=== PATIENT | female | born 1970 | race Caucasian/White ===

== ENCOUNTER 2018-03-09 05:35 | Emergency (ER) | payer SELFPAY ==
[2018-03-09 06:46] LABS: Absolute Lymphocytes (CBC) 0.9 K/uL (0.7-4.9); Absolute Monocytes 0.4 K/uL (0.1-1.3); Basophils % 0.4 % (0-1.3); Eosinophils % 1.4 % (0-4.4); Hematocrit 35.6 % (36.0-45.0); Lymphocytes % 13.5 % (15.3-44.8); MCH 31.6 pg (27.0-35.0); MCV 90.4 fL (80-100); MPV 9.4 fL (7.6-11.3); Monocytes % 6.8 % (3.3-12.3); RBC Red Blood Cell Count 3.94 M/uL (3.86-4.86)
[2018-03-09] MEDS ORDERED: CLINDAMYCIN 600MG/D5W 600 MG/50 ML BAG IV ONE (06:46)
[2018-03-09 06:58] LABS: BUN Blood Urea Nitrogen 9 mg/dL (7-18); Bicarbonate 26 mmol/L (21-32); Glucose Level 91 mg/dL (74-106); Potassium 3.5 mmol/L (3.5-5.1); Sodium Level 140 mmol/L (136-145)
[2018-03-09 07:15] LABS: Blood Morphology Comment NOT SEEN (NOT SEEN); Platelet Estimate DECR; Urine White Blood Cell Casts OK
--- NOTE | 2018-03-09 07:37 | ER ---
Nurse's Notes [facility] Name: Karla Leal Age: 48 yrs Sex: Female : 1970 Arrival Date: 03/09/2018 Time: 05:40 Bed 17 Private MD: Diagnosis: Cutaneous abscess of left lower limb;Cellulitis of left lower limb Presentation: 03/09 05:59 Presenting complaint: Patient states: "For about a week I had this abscess that popped bs1 up, picked it then took some epsom salt bath and just got worse and it smells, I took amoxicillin from brother but ran out.". Transition of care: patient was not received from another setting of care. Onset of symptoms was March 02, 2018. Risk Assessment: Do you want to hurt yourself or someone else? Patient reports no desire to harm self or others. Initial Sepsis Screen: Does the patient meet any 2 criteria? No. Patient's initial sepsis screen is negative. Does the patient have a suspected source of infection? Yes: Skin breakdown/wound. Care prior to arrival: None. 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 - Social history:: Smoking status: Patient/guardian denies using tobacco, Patient uses alcohol, occasionally. street drugs, cocaine. - Ebola Screening: : Patient negative for fever greater than or equal to 101.5 degrees Fahrenheit, and additional compatible Ebola Virus Disease symptoms Patient denies exposure to infectious person. Screenin:35 Abuse screen: Denies threats or abuse. Denies injuries from another. Nutritional bs1 screening: No deficits noted. Tuberculosis screening: No symptoms or risk factors identified. Fall Risk None identified. Assessment: 05:45 General: Appears in no apparent distress. uncomfortable, Behavior is calm, cooperative, bs1 appropriate for age. Pain: Complains of pain in left leg and medial aspect of left calf. Neuro: Level of Consciousness is awake, alert, obeys commands, Oriented to person, place, time, situation, Appropriate for age Medical Billing Assistant are equal bilaterally. Cardiovascular: Heart tones S1 S2 present Capillary refill < 3 seconds Patient's skin is warm and dry. Respiratory: Airway is patent Trachea midline Respiratory effort is even, unlabored, Respiratory pattern is regular, symmetrical, Breath sounds are clear bilaterally. GI: No signs and/or symptoms were reported involving the gastrointestinal system. : No signs and/or symptoms were reported regarding the genitourinary system. EENT: No signs and/or symptoms were reported regarding the EENT system. Derm: Skin open wound to left leg Abscess located on left leg and medial aspect of left calf is dime sized, has purulent drainage, has foul odor, is hot to touch, is red. Musculoskeletal: Circulation, motion, and sensation intact. Capillary refill < 3 seconds, Range of motion: intact in all extremities. 06:30 Reassessment: Patient appears in no apparent distress at this time. Patient and/or bs1 family updated on plan of care and expected duration. Pain level reassessed. Patient is alert, oriented x 3, equal unlabored respirations, skin warm/dry/pink. Pending lab results. Wound culture sent. 07:02 Reassessment: Report given to LAUREN Zuniga. bs1 07:10 Reassessment: Patient appears in no apparent distress at this time. Patient and/or em family updated on plan of care and expected duration. Pain level reassessed. Patient is alert, oriented x 3, equal unlabored respirations, skin warm/dry/pink. General: Appears in no apparent distress. comfortable, Behavior is calm, cooperative. Pain: Complains of pain in medial aspect of left calf. Derm: Abscess located on medial aspect of left calf is dime sized, has purulent drainage, is hot to touch, is red. Vital Signs: 05:50 BP 136 / 63; Pulse 82; Resp 18; Temp 98.4(O); Pulse Ox 98% on R/A; Weight 95.25 kg; bs1 Height 5 ft. 7 in. (170.18 cm); Pain 8/10; 06:48 BP 134 / 65; Pulse 66; Resp 18; Pulse Ox 99% on R/A; mt 07:48 BP 114 / 70; Pulse 74; Resp 18; Pulse Ox 99% on R/A; Pain 6/10; em 05:50 Body Mass Index 32.89 (95.25 kg, 170.18 cm) bs1 ED Course: 05:40 Patient arrived in ED. al2 05:54 Kiki Diaz F[facility]-C is [facility]. kb 05:54 Sohail Sanders MD is Attending Physician. kb 05:59 Tahmina Silva, ALE is Primary Nurse. bs1 06:00 Missed attempt(s): 22 gauge in right forearm. mt 06:01 Triage completed. bs1 06:30 Inserted saline lock: 22 gauge in left wrist, using aseptic technique. bs1 06:35 Patient has correct armband on for positive identification. Bed in low position. Call bs1 light in reach. Side rails up X 1. Pulse ox on. NIBP on. 06:36 Arm band placed on right wrist. bs1 07:49 No provider procedures requiring assistance completed. IV discontinued, intact, em bleeding controlled, No redness/swelling at site. Pressure dressing applied. Administered Medications: 06:45 Drug: Clindamycin 600 mg Route: IVPB; Infused Over: 30 mins; Site: left wrist; bs1 07:26 Follow up: Response: No adverse reaction; IV Status: Completed infusion; IV Intake: 50mlem 07:48 Drug: Doxycycline 100 mg Route: PO; em 07:48 Follow up: Response: Medication administered at discharge. em Intake: 07:26 IV: 50ml; Total: 50ml. em Outcome: 07:35 Discharge ordered by MD. kb 07:50 Discharged to home ambulatory. em 07:50 Condition: good 07:50 Discharge instructions given to patient, Instructed on discharge instructions, follow up and referral plans. medication usage, Demonstrated understanding of instructions, follow-up care, medications, Prescriptions given X 2. 07:51 Patient left the ED. em Addendum: 03/13/2018 09:11 Addendum: Culture Results: Positive wound culture. No further action required. Other: s s Patient reports symptoms have improved greatly. . Signatures: Kiki Diaz FNP-C FNP-Ckb Efrain Jaeger, VETERINARY MEDICINE SCIENTIST VETERINARY MEDICINE SCIENTIST em Mi Rodriguez RN RN ss Thompson, Moriah nm Tahmina Silva, ALE RN bs1 Love, Jackie al2
--- NOTE | 2018-03-09 07:37 | EDPHYS ---
Physician Documentation [facility] Name: Karla Leal Age: 48 yrs Sex: Female : 1970 Arrival Date: 03/09/2018 Time: 05:40 Bed 17 Private MD: ED Physician Sohail Sanders HPI: 03/09 06:05 This 48 yrs old Female presents to ER via Ambulatory with complaints of kb Insect Bite, Leg Pain. 06:05 The patient presents with an abscess of the medial aspect of left calf, The patient kb presents with cellulitis of the medial aspect of left calf. Description: draining, erythematous, swollen, warm. Onset: The symptoms/episode began/occurred 1 week(s) ago. Possible cause(s): unknown. Associated signs and symptoms: Pertinent positives: drainage, erythema, fever, swelling, Pertinent negatives: foreign body sensation, headache, nausea, shortness of breath, vomiting. Modifying factors: the symptoms are alleviated by nothing, the symptoms are aggravated by walking, pressure, squeezing the lesion and expressing the contents, touching. Severity of symptoms: At their worst the symptoms were moderate, in the emergency department the symptoms are unchanged. The patient has not experienced similar symptoms in the past. The patient has not recently seen a physician. Pt states an abscess started a week ago to left medial, proximal calf. Pt opened the abscess at home 3 days ago and reports taking out a core. States redness started around it after that. Symptoms have improved, but have not resolved, states it is still draining and has a bad odor. . 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 - Social history:: Smoking status: Patient/guardian denies using tobacco, Patient uses alcohol, occasionally. street drugs, cocaine. - Ebola Screening: : Patient negative for fever greater than or equal to 101.5 degrees Fahrenheit, and additional compatible Ebola Virus Disease symptoms Patient denies exposure to infectious person. ROS: 06:04 Cardiovascular: Negative for chest pain, palpitations, and edema, Respiratory: Negative kb for shortness of breath, cough, wheezing, and pleuritic chest pain, Abdomen/GI: Negative for abdominal pain, nausea, vomiting, diarrhea, and constipation, MS/Extremity: Negative for injury and deformity, Neuro: Negative for headache, weakness, numbness, tingling, and seizure. 06:04 Constitutional: Positive for fever, Negative for body aches, chills, fatigue, malaise, poor PO intake, weight loss. 06:04 Skin: Positive for abscess, cellulitis, erythema, of the medial aspect of left calf. Exam: 06:04 Constitutional: This is a well developed, well nourished patient who is awake, alert, kb and in no acute distress. Head/Face: Normocephalic, atraumatic. Chest/axilla: Normal chest wall appearance and motion. Nontender with no deformity. No lesions are appreciated. Cardiovascular: Regular rate and rhythm with a normal S1 and S2. No gallops, murmurs, or rubs. Normal PMI, no JVD. No pulse deficits. Respiratory: Lungs have equal breath sounds bilaterally, clear to auscultation and percussion. No rales, rhonchi or wheezes noted. No increased work of breathing, no retractions or nasal flaring. Abdomen/GI: Soft, non-tender, with normal bowel sounds. No distension or tympany. No guarding or rebound. No evidence of tenderness throughout. Back: No spinal tenderness. No costovertebral tenderness. Full range of motion. MS/ Extremity: Pulses equal, no cyanosis. Neurovascular intact. Full, normal range of motion. Neuro: Awake and alert, GCS 15, oriented to person, place, time, and situation. Cranial nerves II-XII grossly intact. Motor strength 5/5 in all extremities. Sensory grossly intact. Cerebellar exam normal. Normal gait. 06:04 Skin: abscess, that is moderate sized, of the medial aspect of left calf, with drainage, with induration, with surrounding cellulitis, that is moderate, pt has open wound to left medial, proximal calf area s/p abscess drainage at home. Wound is size of a dime at this time. . Vital Signs: 05:50 BP 136 / 63; Pulse 82; Resp 18; Temp 98.4(O); Pulse Ox 98% on R/A; Weight 95.25 kg; bs1 Height 5 ft. 7 in. (170.18 cm); Pain 8/10; 06:48 BP 134 / 65; Pulse 66; Resp 18; Pulse Ox 99% on R/A; mt 07:48 BP 114 / 70; Pulse 74; Resp 18; Pulse Ox 99% on R/A; Pain 6/10; em 05:50 Body Mass Index 32.89 (95.25 kg, 170.18 cm) bs1 MDM: 05:54 Patient medically screened. kb 06:03 Data reviewed: vital signs, nurses notes. Data interpreted: Pulse oximetry: on room air kb is 100 %. Interpretation: normal. 07:33 Counseling: I had a detailed discussion with the patient and/or guardian regarding: the kb historical points, exam findings, and any diagnostic results supporting the discharge/admit diagnosis, lab results, the need for outpatient follow up, a general surgeon, to return to the emergency department if symptoms worsen or persist or if there are any questions or concerns that arise at home. 07:37 ED course: ERP consulted regarding platelet count. Pt to follow up with GI outpatient kb for previous diagnosis of chronic liver failure and hepatitis C. Discussed this with pt. States "I know about it, my liver is really bad. I was having it checked when I was on insurance but I haven't been in a while." Pt educated on community resources. Verbal understanding received. . 03/09 06:02 Order name: CBC with Diff; Complete Time: 07:17 kb 03/09 06:02 Order name: Basic Metabolic Panel; Complete Time: 07:03 kb 03/09 06:02 Order name: Blood Culture Adult (2) kb 03/09 06:21 Order name: Wound Culture 03/09 06:54 Order name: CBC Smear Scan; Complete Time: 07:17 EDMS 03/09 06:02 Order name: IV Start; Complete Time: 06:45 kb Administered Medications: 06:45 Drug: Clindamycin 600 mg Route: IVPB; Infused Over: 30 mins; Site: left wrist; bs1 07:26 Follow up: Response: No adverse reaction; IV Status: Completed infusion; IV Intake: 50mlem 07:48 Drug: Doxycycline 100 mg Route: PO; em 07:48 Follow up: Response: Medication administered at discharge. em Disposition: 14:44 Co-signature as Attending Physician, Sohail Sanders MD I agree with the assessment and meghana plan of care. Disposition: 03/09/18 07:35 Discharged to Home. Impression: Cutaneous abscess of left lower limb, Cellulitis of left lower limb. - Condition is Stable. - Discharge Instructions: Skin Abscess, Klpw-mi-[id number], Cellulitis, Adult, Qmqp-[id number]. - Prescriptions for Clindamycin HCl 300 mg Oral Capsule - take 1 capsule by ORAL route every 6 hours for 10 days; 40 capsule. Doxycycline Hyclate 100 mg Oral Tablet - take 1 tablet by ORAL route every 12 hours; 20 tablet. - Medication Reconciliation Form, Thank You Letter, Antibiotic Education, Prescription Opioid Use, Work release form form. - Follow up: Emergency Department; When: As needed; Reason: Worsening of condition. Follow up: Private Physician; When: 2 - 3 days; Reason: Recheck today's complaints, Continuance of care, Re-evaluation by your physician. Signatures: Dispatcher [employer] EDKiki Chaidez, TERRITORY SALES PROFESSIONAL-C TERRITORY SALES PROFESSIONAL-Sohail Shelton MD MD cha Munoz, Edgar, ORTHOTICS ASSISTANT ORTHOTICS ASSISTANT Tahmina Singh, RN RN bs1 Corrections: (The following items were deleted from the chart) 06:21 06:04 Skin: abscess, that is moderate sized, of the medial aspect of left calf, with kb drainage, with induration, with surrounding cellulitis, that is moderate, kb 07:41 07:37 ED course: ERP consulted regarding platelet count. Pt to follow up with GI kb outpatient for previous diagnosis of chronic liver failure and hepatitis C.. kb 07:51 07:35 03/09/2018 07:35 Discharged to Home. Impression: Cutaneous abscess of left lower em limb; Cellulitis of left lower limb. Condition is Stable. Forms are Medication Reconciliation Form, Thank You Letter, Antibiotic Education, Prescription Opioid Use. Follow up: Emergency Department; When: As needed; Reason: Worsening of condition. Follow up: Private Physician; When: 2 - 3 days; Reason: Recheck today's complaints, Continuance of care, Re-evaluation by your physician. kb
[2018-03-09] MEDS ORDERED: DOXYCYCLINE 100 MG CAP PO ONE (07:41)
--- NOTE | 2018-03-21 16:40 | PN ---
Subjective: The patient lying in bed, somnolent, not in any acute distress. Objective: Vital Signs: Temperature 97, pulse 75, respirations 14, blood pressure 143/75. Lungs: Basal crackles. Heart: S1, S2. Regular. Abdomen: Soft, nontender. Bowel sounds positive. Extremities: No edema. Right hip wound noted and left buttock wound also noted. Laboratory Data: Shows WBC 10.9, hemoglobin 9.5, platelets 291. Chemistry shows sodium 136, potassi um 4.2, chloride 107, bicarb 20, BUN 36, creatinine 1.5, glucose 75. Micro data, urine cultures are growing Proteus mirabilis. ESBL currently being treated with IV antibiotic including meropenem. Assessment And Plan: Right hip unstageable wound. Left buttock stage 3 wound noted. Needs debridem ent if the patient is going to continue in acute care, especially the right hip. Urinary tract infec tion, to be treated for a total of 10 days with meropenem. Malnourished, need to improve nutrition e ither through TPN or via PEG tube or Dobbhoff. We will follow the patient closely. NF/MODL Voice ID: [id number] Report ID: [id number]
== END 2018-03-09 07:51 | disposition home or self-care (01) ==
LOC: ER 05:35
DX: L02.416 Cutaneous abscess of left lower limb (principal); L03.116 Cellulitis of left lower limb
CPT/HCPCS: 36415; 80048; 85025; 87040; 87070; 87077; 87186; 87205; 96365; 99284

== ENCOUNTER 2018-12-10 17:57 | Emergency (ER) | payer SELFPAY ==
[2018-12-10] MEDS ORDERED: FUROSEMIDE 40 MG TABLET ONE (19:32)
[2018-12-10 19:45] LABS: Absolute Lymphocytes (CBC) 0.5 K/uL (0.7-4.9); Absolute Monocytes 0.2 K/uL (0.1-1.3); Absolute Neutrophil 1.4 K/uL (1.8-8.0); Basophils % 0.4 % (0-1.3); Eosinophils % 2.1 % (0-4.4); Hematocrit 32.6 % (36.0-45.0); Lymphocytes % 22.9 % (15.3-44.8); MPV 9.5 fL (7.6-11.3); Monocytes % 9.9 % (3.3-12.3)
[2018-12-10 19:57] LABS: Bilirubin Direct 0.9 mg/dL (0-0.2); Bilirubin Total 3.6 mg/dL (0.2-1.0); Potassium 3.1 mmol/L (3.5-5.1); Protein, Total 6.1 g/dL (6.4-8.2)
--- NOTE | 2018-12-10 20:16 | EDPHYS ---
Physician Documentation [facility] [place], [place] Name: Karla Leal Age: 48 yrs Sex: Female : 1970 Arrival Date: 12/10/2018 Time: 17:59 Bed 27 Private MD: ED Physician Yusra Christy HPI: 12/10 19:20 This 48 yrs old Female presents to ER via Ambulatory with complaints of Leg ma2 Swelling, Feet Swelling. 19:20 The patient presents with swelling. Context: has had this before had cld and hep c . ma2 Onset: The symptoms/episode began/occurred gradually. Associated signs and symptoms: Pertinent negatives nausea, swelling, warmth. Severity of symptoms: At their worst the symptoms were mild. 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 - Social history:: Smoking status: Patient/guardian denies using tobacco, Patient/guardian denies using alcohol, street drugs, The patient lives with family. - Ebola Screening: : Patient denies travel to an Ebola-affected area in the 21 days before illness onset. - Family history:: not pertinent. ROS: 19:20 Constitutional: Negative for fever, chills, and weight loss, Cardiovascular: Negative ma2 for chest pain, palpitations, and edema, Respiratory: Negative for shortness of breath, cough, wheezing, and pleuritic chest pain, Abdomen/GI: Negative for abdominal pain, nausea, diarrhea, and constipation. 19:20 Neuro: Negative for headache, weakness, numbness, tingling, and seizure, Psych: Negative for depression, anxiety, suicide ideation, homicidal ideation, and hallucinations. 19:20 MS/extremity: Positive for swelling. Exam: 19:20 Constitutional: This is a well developed, well nourished patient who is awake, alert, ma2 and in no acute distress. Chest/axilla: Normal chest wall appearance and motion. Nontender with no deformity. No lesions are appreciated. Cardiovascular: Regular rate and rhythm with a normal S1 and S2. No gallops, murmurs, or rubs. Normal PMI, no JVD. No pulse deficits. Respiratory: Lungs have equal breath sounds bilaterally, clear to auscultation and percussion. No rales, rhonchi or wheezes noted. No increased work of breathing, no retractions or nasal flaring. Abdomen/GI: Soft, non-tender, with normal bowel sounds. No distension or tympany. No guarding or rebound. No evidence of tenderness throughout. Neuro: Awake and alert, GCS 15, oriented to person, place, time, and situation. Cranial nerves II-XII grossly intact. Motor strength 5/5 in all extremities. Sensory grossly intact. Cerebellar exam normal. Normal gait. 19:20 Musculoskeletal/extremity: Extremities: bilateral LE edema 2+ pitting, pulses and sensation intact cap refill brisk, ROM: intact in all extremities, Circulation is intact in all extremities. Sensation intact. Compartment Syndrome exam of affected extremity: is normal. Vital Signs: 18:15 BP 125 / 75; Pulse 85; Resp 18; Temp 98.0; Pulse Ox 100% on R/A; Weight 77.11 kg (R); aj1 Height 5 ft. 7 in. (170.18 cm) (R); Pain 8/10; 19:00 BP 118 / 70; Pulse 76; Resp 17 S; Pulse Ox 100% on R/A; ca1 19:30 BP 113 / 65; Pulse 76; Resp 17 S; Pulse Ox 100% on R/A; ca1 20:40 BP 110 / 67; Pulse 75; Resp 17; Temp 98; Pulse Ox 98% ; rv 18:15 Body Mass Index 26.63 (77.11 kg, 170.18 cm) aj1 MDM: 19:05 Patient medically screened. ma2 19:20 Differential diagnosis: LE edema from CLD vs ARF, edema is equal bilat ie dvt unlikely. ma2 Data reviewed: vital signs, nurses notes. Counseling: I had a detailed discussion with the patient and/or guardian regarding: the historical points, exam findings, and any diagnostic results supporting the discharge/admit diagnosis, the presence of at least one elevated blood pressure reading (>120/80) during this emergency department visit, the need for outpatient follow up. Response to treatment: the patient's symptoms have markedly improved after treatment. 20:15 ED course: patient has low platelet however this is chronic per patient . [facility] [place] 12/10 19:14 Order name: Basic Metabolic Panel; Complete Time: 19:58 [facility] 12/10 19:14 Order name: CBC with Diff [facility] 12/10 19:14 Order name: Creatinine for Radiology; Complete Time: 19:57 [facility] [place] 12/10 19:14 Order name: Hepatic Function; Complete Time: 19:58 [facility] [place] 12/10 19:14 Order name: Lipase; Complete Time: 19:58 [facility] 12/10 19:51 Order name: CBC Smear Scan [facility] 12/10 19:14 Order name: IV Saline Lock; Complete Time: 19:37 [facility] 12/10 19:14 Order name: Labs collected and sent; Complete Time: 19:37 [facility] 12/10 20:19 Order name: Urine Dipstick--Ancillary (enter results) [facility] 12/10 20:19 Order name: Urine --Ancillary (enter results) [facility] Administered Medications: 19:18 Drug: LaSIX 40 mg Route: PO; ca1 20:41 Follow up: Response: No adverse reaction rv Disposition: 12/10/18 20:16 Discharged to Home. Impression: Edema, unspecified. - Condition is Stable. - Discharge Instructions: Edema. - Prescriptions for Lasix 20 mg Oral Tablet - take 1 tablet by ORAL route once daily; 20 tablet. - Medication Reconciliation Form, Thank You Letter, Antibiotic Education, Prescription Opioid Use form. - Follow up: Private Physician; When: Tomorrow; Reason: Continuance of care. Signatures: Dispatcher [employer] [facility] Carolyn Franklin RN RN aj1 Yusra Christy MD MD ma2 Tyrone Cooper RN RN rv Acob, Esperanza RN RN ca1 Corrections: (The following items were deleted from the chart) 20:42 20:16 12/10/2018 20:16 Discharged to Home. Impression: Edema, unspecified. Condition is rv Stable. Prescriptions for Lasix 20 mg Oral Tablet - take 1 tablet by ORAL route once daily; 20 tablet. and Forms are Medication Reconciliation Form, Thank You Letter, Antibiotic Education, Prescription Opioid Use. Follow up: Private Physician; When: Tomorrow; Reason: Continuance of care. ma2
--- NOTE | 2018-12-10 20:16 | ER ---
Nurse's Notes [facility] Name: Karla Leal Age: 48 yrs Sex: Female : 1970 Arrival Date: 12/10/2018 Time: 17:59 Bed 27 Private MD: Diagnosis: Edema, unspecified Presentation: 12/10 18:13 Presenting complaint: Patient states: "My feet and legs have been swelling for the past aj1 few days" Patient reports that she gets swelling sometimes because she has liver failure. Patient also reports nausea, states that she does not currently have a liver specialist. Jaundice noted to sclera of both eyes. Transition of care: patient was not received from another setting of care. Onset of symptoms was December 06, 2018. Risk Assessment: Do you want to hurt yourself or someone else? Patient reports no desire to harm self or others. Initial Sepsis Screen: Does the patient meet any 2 criteria? No. Patient's initial sepsis screen is negative. Does the patient have a suspected source of infection? No. Patient's initial sepsis screen is negative. Care prior to arrival: None. 18:13 Method Of Arrival: Ambulatory aj1 18:13 Acuity: CLAUDIA 3 aj1 Triage Assessment: 18:15 General: Appears in no apparent distress. uncomfortable, Behavior is calm, cooperative, aj1 appropriate for age. Pain: Complains of pain in abdomen, right foot and left foot. Neuro: Level of Consciousness is awake, alert, obeys commands, Oriented to person, place, time, situation. Cardiovascular: Patient's skin is warm and dry. Respiratory: Airway is patent Respiratory effort is even, unlabored, Respiratory pattern is regular, symmetrical. 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 - Social history:: Smoking status: Patient/guardian denies using tobacco, Patient/guardian denies using alcohol, street drugs, The patient lives with family. - Ebola Screening: : Patient denies travel to an Ebola-affected area in the 21 days before illness onset. - Family history:: not pertinent. Screenin:35 Abuse screen: Denies threats or abuse. Denies injuries from another. Nutritional ca1 screening: No deficits noted. Tuberculosis screening: No symptoms or risk factors identified. Fall Risk None identified. Assessment: 18:35 General: Appears in no apparent distress. comfortable, Behavior is calm, cooperative, ca1 appropriate for age. Pain: Denies pain. Neuro: Level of Consciousness is awake, alert, obeys commands, Oriented to person, place, time, situation. Cardiovascular: Heart tones S1 S2 present Capillary refill < 3 seconds Patient's skin is warm and dry. Respiratory: Airway is patent Respiratory effort is even, unlabored, Respiratory pattern is regular, symmetrical, Breath sounds are clear bilaterally. GI: Abdomen is flat, non-distended, Bowel sounds present X 4 quads. Abd is soft and non tender X 4 quads. : Urine is clear. EENT: No deficits noted. No signs and/or symptoms were reported regarding the EENT system. Derm: Skin is intact, Skin is normal, Bruising that is dark purple, on all over. Musculoskeletal: Circulation, motion, and sensation intact. Capillary refill < 3 seconds, Range of motion: intact in all extremities. 19:30 Reassessment: Patient appears in no apparent distress at this time. Patient and/or ca1 family updated on plan of care and expected duration. Pain level reassessed. Patient is alert, oriented x 3, equal unlabored respirations, skin warm/dry/pink. 19:50 Reassessment: CRITICAL LAB: PLATELET 30. Notified Dr. Christy. ca1 Vital Signs: 18:15 BP 125 / 75; Pulse 85; Resp 18; Temp 98.0; Pulse Ox 100% on R/A; Weight 77.11 kg (R); aj1 Height 5 ft. 7 in. (170.18 cm) (R); Pain 8/10; 19:00 BP 118 / 70; Pulse 76; Resp 17 S; Pulse Ox 100% on R/A; ca1 19:30 BP 113 / 65; Pulse 76; Resp 17 S; Pulse Ox 100% on R/A; ca1 20:40 BP 110 / 67; Pulse 75; Resp 17; Temp 98; Pulse Ox 98% ; rv 18:15 Body Mass Index 26.63 (77.11 kg, 170.18 cm) aj1 ED Course: 17:59 Patient arrived in ED. as 18:13 Carolyn Franklin, RN is Primary Nurse. aj1 18:15 Triage completed. aj1 18:15 Arm band placed on Patient placed in waiting room, Patient notified of wait time. aj1 18:35 Patient has correct armband on for positive identification. Placed in gown. Bed in low ca1 position. Call light in reach. Side rails up X 1. Pulse ox on. NIBP on. Warm blanket given. 18:35 No provider procedures requiring assistance completed. ca1 18:57 Esperanza Ayers, RN is Primary Nurse. ca1 19:05 Yusra Christy MD is Attending Physician. ma2 19:17 Inserted saline lock: 22 gauge in left hand, using aseptic technique. Blood collected. ca1 20:42 IV discontinued, intact, bleeding controlled, No redness/swelling at site. Pressure rv dressing applied. Administered Medications: 19:18 Drug: LaSIX 40 mg Route: PO; ca1 20:41 Follow up: Response: No adverse reaction rv Outcome: 20:16 Discharge ordered by . ma2 20:42 Discharged to home ambulatory. rv 20:42 Condition: good 20:42 Condition: good 20:42 Discharge instructions given to patient, Instructed on discharge instructions, follow up and referral plans. medication usage, Demonstrated understanding of instructions, follow-up care, medications, Prescriptions given X 1. 20:42 Patient left the ED. rv Signatures: Carolyn Franklin, RN RN aj1 Margie Crowell as Yusra Christy MD MD ma2 Tyrone Cooper RN RN rv Esperanza Ayers RN RN ca1 Corrections: (The following items were deleted from the chart) 19:39 18:00 Inserted saline lock: 22 gauge in left hand, using aseptic technique. Blood ca1 collected. ca1
[2018-12-10 20:32] LABS: Urine Blood NEGATIVE (NEG); Urine Glucose NEGATIVE (NEG); Urine Protein 1+ (NEG); Urine Specific Gravity 1.025 (1.005-1.030)
[2018-12-10 21:01] LABS: Blood Morphology Comment NOT SEEN (NOT SEEN); Platelet Estimate DECR; Urine White Blood Cell Casts OK
== END 2018-12-10 20:42 | disposition home or self-care (01) ==
LOC: ER 17:57
DX: R60.9 Edema, unspecified (principal)
CPT/HCPCS: 36415; 80048; 80076; 81003; 81025; 83690; 85025; 99284

== ENCOUNTER 2018-12-21 10:08 | Emergency (ER) | payer SELFPAY ==
--- NOTE | 2018-12-21 11:32 | ER ---
Nurse's Notes [facility] Name: Karla Leal Age: 48 yrs Sex: Female : 1970 Arrival Date: 12/21/2018 Time: 10:11 Bed Waiting Private MD: Graham, None Diagnosis: Presentation: 12/21 10:21 Presenting complaint: Patient states: BLE swelling x3 weeks, nausea, weight loss 40 sv pounds over the last 3 months. Was seen here last week for the same thing and was prescribed Lasix. Transition of care: patient was not received from another setting of care. Onset of symptoms was November 2018. Care prior to arrival: None. 10:21 Method Of Arrival: Ambulatory sv 10:21 Acuity: CLAUDIA 3 sv Triage Assessment: 10:21 General: Appears in no apparent distress. uncomfortable, Behavior is calm, cooperative, sv appropriate for age. Pain: Denies pain. Neuro: Level of Consciousness is awake, alert, obeys commands, Oriented to person, place, time, situation, Moves all extremities. Full function Gait is steady. Respiratory: Respiratory effort is even, unlabored, Respiratory pattern is regular, symmetrical. GI: Reports nausea. Musculoskeletal: Swelling present in right leg and left leg. Historical: - Allergies: 10:23 No Known Drug Allergies; sv - PMHx: 10:23 Heart Murmur; HEP C; Hernia; liver failure; sv - Immunization history:: Adult Immunizations up to date. - Social history:: Smoking status: Patient/guardian denies using tobacco, Patient/guardian denies using alcohol. - Ebola Screening: : No symptoms or risks identified at this time. Vital Signs: 10:23 BP 132 / 79; Pulse 83; Resp 18; Temp 97.4; Pulse Ox 98% ; Weight 77.11 kg; Height 5 ft. sv 7 in. (170.18 cm); Pain 0/10; 10:23 Body Mass Index 26.63 (77.11 kg, 170.18 cm) sv ED Course: 10:11 Patient arrived in ED. mr 10:11 None, None is Private Physician. mr 10:22 Triage completed. sv 10:24 Arm band placed on. sv Administered Medications: No medications were administered Outcome: 11:32 Patient left the ED. sv Signatures: Rhonda Gomez RN Karla uQinteros mr Corrections: (The following items were deleted from the chart) 10:24 10:23 Resp 18bpm; Pulse Ox 98%; Temp 97.4F; 77.11 kg; Height 5 ft. 7 in.; BMI: 26.6; sv Pain 0/10; sv 10:54 10:21 Presenting complaint: Patient states: BLE swelling x3 weeks, nausea, weight loss sv 40 pounds over the last 3 months. sv
== END 2018-12-21 11:32 | disposition left against medical advice (07) ==
LOC: ER 10:08
DX: Z53.21 Procedure and treatment not carried out due to patient leaving prior to being seen by health care provider (principal)
CPT/HCPCS: 99281

== ENCOUNTER 2022-03-18 05:39 | Emergency (ER) | payer SELFPAY ==
--- OUTSIDE RECORDS SUMMARY | 2022-03-18 05:42 | XMS REPORT | Continuity of Care Document ---
:1970 Author Organization [facility] t Address [address] [place] [address] Care Team Providers Name Role Phone Kaela Penn Primary Care Physician Jaime DANIELLE, Dylan Pierson Attending Clinician Moises Duval RN, Ethel Attending Clinician Unavailable Kaela Penn Attending Clinician Payers Payer Name Policy Type Policy Number Effective Date Expiration Date S ource Problems Condition Condition Condition Status Onset Resolution Last Treating Co mments Source Name Details Category Date Date Treatment Clinician Date Hepatic Hepatic Disease Active 2018-07 Overview: Univ ers cirrhosis, cirrhosis, 08-11 Formattin ity of unspecifie unspecifie 00:00: g of this [place] d hepatic d hepatic 00 note Medi angelita cirrhosis cirrhosis might be Br anch type, type, different unspecifie unspecifie from the d whether d whether original. ascites ascites Added present present automatic ally from request for surgery [id number] Constipati Constipati Disease Active U nivers on on 03-22 ity of 00:00: [place] 00 Medical Branch Major Major Disease Active Overview: Univer s puerperal puerperal - Formattin i ty of infection infection 00:00: [place] of [place] note Medical might be Branch different from the original. 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 Social History Social Habit Start Date Stop Date Quantity Comments Source History SDAK University o f Alcohol Frequency [facility] edical Branch History SDAK University o f Alcohol Std Drinks [facility] History [facility] hospital o f Alcohol Binge [facility] al Branch Exposure to 2022-03-07 2022-03-17 Not sure [facility] SARS-CoV-2 (event) 00:00:00 15:17:00 [facility] Alcohol intake 2022-03-17 2022-03-17 Ex-drinker University 00:00:00 00:00:00 (finding) [facility] Cigarettes smoked 2022-03-17 2022-03-17 Univers ity of current (pack per 00:00:00 00:00:00 [facility] ) - Reported Branch Cigarette 2022-03-17 2022-03-17 University of pack-years 00:00:00 00:00:00 [facility] Tobacco use and 2022-03-17 2022-03-17 Smokeless Universit y of exposure 00:00:00 00:00:00 tobacco non-user [facility] Alcohol Comment 2019-05-23 2019-05-23 Socially Universit y of 00:00:00 00:00:00 [facility] History of tobacco 2012-07-31 Cigarette Smoker University of use 00:00:00 [facility] Sex Ass[birth year] At [birth year] Universit y of 00:00:00 00:00:00 [facility] Smoking Status Start Date Stop Date Source Ex-smoker 2022-03-17 00:00:00 2022-03-17 00:00:00 Universi ty of [facility] Medications Ordered Filled Start Stop Current Ordering Indication Dosage Frequency Signature Comments Components Source Medication Medication Date Date Medication? Clinician (SIG) Name Name ledipasvir/ Yes Take by Uni vers sofosbuvir 8-25 mouth. ity of (HARVONI 15:25: [place] ORAL) 43 Medical Branch ledipasvir/ 0 Yes Take by Uni vers sofosbuvir 8-25 mouth. ity of (HARVONI 15:25: [place] ORAL) 43 Medical Branch ledipasvir/ 0 Yes Take by Uni vers sofosbuvir 8-25 mouth. ity of (HARVONI 15:25: [place] ORAL) 43 Medical Branch estradioL 0 Yes [id number] 2g Insert 2 g Univers 0.01 % (0.1 8-25 into ity of mg/gram) 00:00: vagina [place] vaginal 00 weekly. Medical cream Start Branch every 2 weeks for 1 month, then weekly thereafter PARoxetine 2021-0 Yes [id number] 10mg Take 1 Univers (PAXIL) 10 8-25 tablet by [place] of mg tablet [place] bed[place]. [place] mupirocin 2 2021- Yes [id number] Apply to Univers % ointment 8-25 [id number] area(s) 3 i ty of 00:00: (three) [place] 00 times Medical daily. Branch estradioL Yes [id number] 2g Insert 2 g Univers 0.01 % (0.1 8-25 into ity of mg/gram) 00:00: vagina [place] vaginal 00 weekly. Medical cream Start Branch every 2 weeks for 1 month, then weekly thereafter PARoxetine 2021- Yes [id number] 10mg Take 1 Univers (PAXIL) 10 8-25 tablet by [place]y of mg tablet [place] bed[place]. [place] mupirocin 2 2021- Yes [id number] Apply to Univers % ointment 8-25 [id number] area(s) 3 i ty of 00:00: (three) [place] 00 times Medical daily. Branch estradioL 2021-0 Yes [id number] 2g Insert 2 g Univers 0.01 % (0.1 8-25 into ity of mg/gram) 00:00: vagina [place] vaginal 00 weekly. Medical cream Start Branch every 2 weeks for 1 month, then weekly thereafter PARoxetine 2021-0 Yes [id number] 10mg Take 1 Univers (PAXIL) 10 8-25 tablet by ity of mg tablet [place] bed[place]. [place] mupirocin 2 2021-0 Yes [id number] Apply to Univers % ointment 8-25 [id number] area(s) 3 i ty of 00:00: (three) [place] 00 times Medical daily. Branch omeprazole Yes [id number] 20mg Take 1 Univers 20 mg 4-18 capsule by ity of capsule 00:00: mouth [place] 00 daily. Medical Branch omeprazole Yes [id number] 20mg Take 1 Univers 20 mg 4-18 capsule by ity of capsule 00:00: mouth [place] 00 daily. Medical Branch omeprazole 0 Yes [id number] 20mg Take 1 Univers 20 mg 4-18 capsule by ity of capsule 00:00: mouth [place] 00 daily. Medical Branch omeprazole 0 Yes [id number] 20mg Take 1 Univers 20 mg 4-18 capsule by ity of capsule 00:00: mouth [place] 00 daily. Medical Branch spironolact 2020-07 Yes [id number] 100mg Take 1 Univers one 100 mg 2-02 tablet by ity of tablet 00:00: mouth [place] 00 daily. Medical Branch furosemide 2020-07 Yes [id number] 40mg Take 1 Univers 40 mg 2-02 tablet by ity of tablet 00:00: mouth [place] 00 daily. Medical Branch spironolact 2020-07 Yes [id number] 100mg Take 1 Univers one 100 mg 2-02 tablet by ity of tablet 00:00: mouth [place] 00 daily. Medical Branch furosemide 2020-07 Yes [id number] 40mg Take 1 Univers 40 mg 2-02 tablet by ity of tablet 00:00: mouth [place] 00 daily. Medical Branch spironolact 2020-07 Yes [id number] 100mg Take 1 Univers one 100 mg 2-02 tablet by ity of tablet 00:00: mouth [place] 00 daily. Medical Branch furosemide 2020-07 Yes [id number] 40mg Take 1 Univers 40 mg 2-02 tablet by ity of tablet 00:00: mouth [place] 00 daily. Medical Branch spironolact 2020-07 Yes [id number] 100mg Take 1 Univers one 100 mg 2-02 tablet by ity of tablet 00:00: mouth [place] 00 daily. Medical Branch furosemide 2020-07 Yes [id number] 40mg Take 1 Univers 40 mg 2-02 tablet by ity of tablet 00:00: mouth [place] 00 daily. Medical Branch mupirocin 2 2018-07 Yes [id number] Apply to Univers % ointment 0-31 area(s) 3 ity of 00:00: (three) [place] 00 times Medical daily. Branch Immunizations Ordered Filled Immunization Date Status Comments [facility] e Immunization Name Name Influenza Virus 2021-06-24 Completed Universit y of Vaccine Quad IM, 00:00:00 [place] Ca dical Preserv and ABX Branch Free 6 MO-64 YRS Influenza Virus 2021-06-24 Completed Universit y of Vaccine Quad IM, 00:00:00 [place] Me dical Preserv and ABX Branch Free 6 MO-64 YRS Influenza Virus 2021-06-24 Completed Universit y of Vaccine Quad IM, 00:00:00 [facility] dical Preserv and ABX Branch Free 6 MO-64 YRS Influenza Virus 2021-06-24 Completed Universit y of Vaccine Quad IM, 00:00:00 [facility] dical Preserv and ABX Branch Free 6 MO-64 YRS Influenza Virus 2019-05-23 Completed Universit y of Vaccine Quad .5 mL 00:00:00 [place] Medical IM 6+ MO Branch Influenza Virus 2019-05-23 Completed Universit y of Vaccine [place] .5 mL 00:00:00 [place] Medical IM 6+ MO Branch Influenza Virus 2019-05-23 Completed Universit y of Vaccine [place] .5 mL 00:00:00 [place] Medical IM 6+ MO Branch Influenza Virus 2019-05-23 Completed Universit y of Vaccine [place] .5 mL 00:00:00 [facility] IM 6+ MO Branch Pneumococcal 2007-07-24 Completed University o f Polysaccharide, 00:00:00 [facility] ical PPSV23 (PNEUMOVAX) Branch Pneumococcal 2007-07-24 Completed University o f Polysaccharide, 00:00:00 [place] [facility] ical PPSV23 (PNEUMOVAX) Branch Pneumococcal 2007-07-24 Completed University o f Polysaccharide, 00:00:00 [place] Med ical PPSV23 (PNEUMOVAX) Branch Pneumococcal 2007-07-24 Completed University o f Polysaccharide, 00:00:00 [place] Med ical PPSV23 (PNEUMOVAX) Branch Procedures This patient has no known procedures. Encounters Start End Encounter Admission Attending Care Care Encounter Source Date/Time Date/Time Type Type Clinicians Facility Department ID 2022-03-18 2022-03-18 Telephone Jaime [facility] [id number] Univers 00:00:00 00:00:00 Peter A HEALTH [id number] it y of [place] [id number] [id number] [facility] PRIMARY & 365 Branch SPECIALTY CARE 2022-03-18 2022-03-18 Nurse Moises MOELLER [id number] Univers 00:00:00 00:00:00 Triage FADI Duval [id number] ity of [facility] [id number] Nikolas as [phone] [place] [address] Branch 2022-03-18 2022-03-18 Telephone Moises MOELLER [id number] Univers 00:00:00 00:00:00 FADI Duval [id number] ity of [facility] [id number] Nikolas as [phone] [address] 2021-11-08 2021-11-08 SWEETIE Trivedi [id number] Univers 00:00:00 00:00:00 Kaela HEALTH [id number] it y of [place] [id number] Nikolas as JANE?BLEA [phone] Ca sebas VALENCIA [facility] Branch MEDICAL OFFICE BUILDING Results This patient has no known results.
[2022-03-18] MEDS ORDERED: NA CHLORIDE 0.9% 500 ML ONE (06:05)
[2022-03-18 06:29] LABS: Absolute Lymphocytes (CBC) 0.5 K/uL (0.7-4.9); Hematocrit 28.1 % (36.0-45.0); Lymphocytes % 17.1 % (15.3-44.8); MCV 83.5 fL (80-100); MPV 8.2 fL (7.6-11.3); RBC Red Blood Cell Count 3.36 M/uL (3.86-4.86)
[2022-03-18 06:33] LABS: Urine Blood Negative (Negative); Urine Glucose Trace (Negative); Urine Protein 1+ (Negative); Urine Specific Gravity >=1.030 (1.005-1.030)
[2022-03-18 06:49] LABS: Albumin 2.7 g/dL (3.4-5.0); Bilirubin Total 2.4 mg/dL (0.2-1.0); Protein, Total 6.3 g/dL (6.4-8.2)
[2022-03-18 06:50] LABS: Potassium 3.7 mmol/L (3.5-5.1)
[2022-03-18] MEDS ORDERED: CEFTRIAXONE 1000 MG/VIAL ONE (06:52)
[2022-03-18] MEDS ORDERED: CIPROFLOXACIN HCL 500 MG TAB ONE (06:52)
--- NOTE | 2022-03-18 07:04 | EDPHYS ---
Physician Documentation [facility] Name: Karla Leal Age: 52 yrs Sex: Female : 1970 Arrival Date: 03/18/2022 Time: 05:40 Bed 5 Private MD: RIO Physician Sohail Sanders HPI: 03/18 05:48 This 52 yrs old Female presents to ER via Unassigned with complaints of meghana Abnormal Lab Results. 05:48 low calcium, high potassium. Onset: The symptoms/episode began/occurred 1 day(s) ago. meghana Severity of symptoms: At their worst the symptoms were mild in the emergency department the symptoms are unchanged. The patient has not experienced similar symptoms in the past. 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 - Family history:: not pertinent. - Social history:: Smoking status: Patient denies any tobacco usage or history of. ROS: 05:49 Constitutional: Negative for fever, chills, and weight loss, Eyes: Negative for injury, meghana pain, redness, and discharge, ENT: Negative for injury, pain, and discharge, Neck: Negative for injury, pain, and swelling, Cardiovascular: Negative for chest pain, palpitations, and edema, Respiratory: Negative for shortness of breath, cough, wheezing, and pleuritic chest pain, Abdomen/GI: Negative for abdominal pain, nausea, vomiting, diarrhea, and constipation, Back: Negative for injury and pain, : Negative for injury, bleeding, discharge, and swelling, MS/Extremity: Negative for injury and deformity, Skin: Negative for injury, rash, and discoloration, Neuro: Negative for headache, weakness, numbness, tingling, and seizure, Psych: Negative for depression, anxiety, suicide ideation, homicidal ideation, and hallucinations, Allergy/Immunology: Negative for hives, rash, and allergies, Endocrine: Negative for neck swelling, polydipsia, polyuria, polyphagia, and marked weight changes, Hematologic/Lymphatic: Negative for swollen nodes, abnormal bleeding, and unusual bruising. Exam: 05:49 Constitutional: This is a well developed, well nourished patient who is awake, alert, meghana and in no acute distress. Head/Face: Normocephalic, atraumatic. Eyes: Pupils equal round and reactive to light, extra-ocular motions intact. Lids and lashes normal. Conjunctiva and sclera are non-icteric and not injected. Cornea within normal limits. Periorbital areas with no swelling, redness, or edema. ENT: Nares patent. No nasal discharge, no septal abnormalities noted. Tympanic membranes are normal and external auditory canals are clear. Oropharynx with no redness, swelling, or masses, exudates, or evidence of obstruction, uvula midline. Mucous membranes moist. Neck: Trachea midline, no thyromegaly or masses palpated, and no cervical lymphadenopathy. Supple, full range of motion without nuchal rigidity, or vertebral point tenderness. No Meningismus. Chest/axilla: Normal chest wall appearance and motion. Nontender with no deformity. No lesions are appreciated. Cardiovascular: Regular rate and rhythm with a normal S1 and S2. No gallops, murmurs, or rubs. Normal PMI, no JVD. No pulse deficits. Respiratory: Lungs have equal breath sounds bilaterally, clear to auscultation and percussion. No rales, rhonchi or wheezes noted. No increased work of breathing, no retractions or nasal flaring. Abdomen/GI: Soft, non-tender, with normal bowel sounds. No distension or tympany. No guarding or rebound. No evidence of tenderness throughout. Back: No spinal tenderness. No costovertebral tenderness. Full range of motion. Skin: Warm, dry with normal turgor. Normal color with no rashes, no lesions, and no evidence of cellulitis. MS/ Extremity: Pulses equal, no cyanosis. Neurovascular intact. Full, normal range of motion. Neuro: Awake and alert, GCS 15, oriented to person, place, time, and situation. Cranial nerves II-XII grossly intact. Motor strength 5/5 in all extremities. Sensory grossly intact. Cerebellar exam normal. Normal gait. Psych: Awake, alert, with orientation to person, place and time. Behavior, mood, and affect are within normal limits. 06:45 ECG was reviewed by the Attending Physician. [facility] Vital Signs: 05:50 BP 129 / 75; Pulse 88; Resp 18; Temp 98.3; Pulse Ox 100% on R/A; Pain 0/10; kl 06:39 Weight 88.45 kg; kd3 MDM: 05:44 Patient medically screened. [facility] 05:50 Data reviewed: vital signs, nurses notes, lab test result(s), EKG. Data interpreted: [facility] phototypesetting equipment monitor: rate is 75 beats/min, rhythm is regular, Pulse oximetry: on room air is 100 %. Test interpretation: by ED physician or midlevel provider: ECG, plain radiologic studies. Counseling: I had a detailed discussion with the patient and/or guardian regarding: the historical points, exam findings, and any diagnostic results supporting the discharge/admit diagnosis, lab results. 03/18 05:48 Order name: CBC with Diff [facility] 03/18 05:48 Order name: Comprehensive Metabolic Panel; Complete Time: 07:03 [facility] 03/18 06:34 Order name: Urine Dipstick-Ancillary; Complete Time: 06:40 [facility] 03/18 06:40 Order name: Urine Culture [facility] 03/18 07:22 Order name: CBC Smear Scan [facility] 03/18 05:48 Order name: Urine Dipstick-Ancillary (obtain specimen); Complete Time: 06:34 [facility] 03/18 05:53 Order name: EKG; Complete Time: 05:53 [facility] 03/18 05:53 Order name: EKG - Nurse/Tech; Complete Time: 06:02 [facility] EC:45 Rate is 79 beats/min. Rhythm is regular. QRS [place] is Normal. [place] interval is normal. QRS [place] interval is normal. QT interval is normal. No Q waves. T waves are Normal. No ST changes noted. Clinical impression: NSR w/ Non-specific ST/T Changes and No evidence of ischemia. Interpreted by me. Reviewed by me. Administered Medications: 06:38 Drug: NS 0.9% 500 ml Route: IV; Rate: bolus; Site: right antecubital; kd3 07:16 Follow up: Response: No adverse reaction ap3 07:16 Follow up: IV Status: Completed infusion ap3 06:49 Drug: Rocephin (cefTRIAXone) 1 grams Route: IV; Rate: per protocol; Site: right kd3 antecubital; 07:16 Follow up: IV Status: Completed infusion ap3 06:49 Drug: Cipro (ciprofloxacin) 500 mg Route: PO; kd3 07:16 Follow up: Response: No adverse reaction ap3 Disposition Summary: 03/18/22 07:03 Discharge Ordered Location: Home [facility] Problem: new meghana Symptoms: have improved meghana Condition: Stable meghana Diagnosis - UTI/ Urinary tract infection, site not specified meghana - Unspecified cirrhosis of liver meghana Followup: meghana - With: Private Physician - When: 2 - 3 days - Reason: Recheck today's complaints, Continuance of care, Re-evaluation by your physician Discharge Instructions: - Discharge Summary Sheet meghana - Cirrhosis meghana - Dysuria meghana - Urinary Tract Infection, Adult meghana - Urinary Tract Infection, Adult, [id number] [facility] Forms: - Medication Reconciliation Form [facility] - Thank You Letter [facility] - Antibiotic Education [facility] - Prescription Opioid Use [facility] Prescriptions: - Cipro 250 mg Oral Tablet - take 1 tablet by ORAL route every 12 hours; 14 tablet; Refills: 0, Product [facility] Selection Permitted - Bactrim DS 800-160 mg Oral Tablet - take 1 tablet by ORAL route every 12 hours for 7 days; 14 tablet; Refills: 0, [facility] Product Selection Permitted Signatures: Dispatcher [employer] Michaela Knox RN Sohail Cárdenas MD MD cha Prokisch, Amanda, RN RN ap3 Muriel Andre RN RN kd3 Gaviota Nowak RN RN aa9
--- NOTE | 2022-03-18 07:04 | ER ---
Nurse's Notes [facility] Name: Karla Leal Age: 52 yrs Sex: Female : 1970 Arrival Date: 03/18/2022 Time: 05:40 Bed 5 Private MD: Diagnosis: UTI/ Urinary tract infection, site not specified;Unspecified cirrhosis of liver Presentation: 03/18 05:50 Chief complaint: Patient states: rec'd call regarding lab taken yesterday reports kl Potassium high Calcium low pt reports cramping to legs and feet as only symptom. Ebola Screen: Patient negative for fever greater than or equal to 101.5 degrees Fahrenheit, and additional compatible Ebola Virus Disease symptoms. Initial Sepsis Screen: Does the patient meet any 2 criteria? No. Patient's initial sepsis screen is negative. Does the patient have a suspected source of infection? No. Patient's initial sepsis screen is negative. Risk Assessment: Do you want to hurt yourself or someone else? Patient reports no desire to harm self or others. Onset of symptoms was March 18, 2022. 05:50 Method Of Arrival: Ambulatory kl 05:50 Acuity: CLAUDIA 2 kl 05:56 Note pt reports has stage IV liver failure new med of Harvoni for Hep C. kl 05:57 Note Pt lab results per pt medical record Potassium 10.3 Calcium <1 Pt ambulatory with kl steady gait. 07:15 Coronavirus screen: At this time, the client does not indicate any symptoms associated ap3 with coronavirus-19. Triage Assessment: 05:54 General: Appears distressed, Behavior is anxious. Pain: Denies pain. 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 - Family history:: not pertinent. - Social history:: Smoking status: Patient denies any tobacco usage or history of. Screenin:24 Abuse screen: Denies threats or abuse. Denies injuries from another. Nutritional aa9 screening: No deficits noted. Tuberculosis screening: No symptoms or risk factors identified. Fall Risk None identified. Assessment: 06:23 General: Appears uncomfortable, Behavior is anxious. Pain: Denies pain. aa9 07:16 General: patient discharged, awaiting transportation back to her home. ap3 Vital Signs: 05:50 BP 129 / 75; Pulse 88; Resp 18; Temp 98.3; Pulse Ox 100% on R/A; Pain 0/10; kl 06:39 Weight 88.45 kg; kd3 ED Course: 05:40 Patient arrived in ED. bp1 05:44 Sohail Sanders MD is Attending Physician. [facility] 05:54 Triage completed. kl 06:00 Muriel Andre RN is Primary Nurse. kd3 06:24 Arm band placed on. aa9 06:24 Patient has correct armband on for positive identification. Bed in low position. Side aa9 rails up X2. 06:34 Notified ED physician of a critical lab result(s). platelets 45. kl 06:35 Comprehensive Metabolic Panel Sent. kd3 06:35 CBC with Diff Sent. kd3 06:52 Urine Culture Sent. kd3 07:15 No provider procedures requiring assistance completed. IV discontinued, intact, ap3 bleeding controlled, No redness/swelling at site. Pressure dressing applied. Administered Medications: 06:38 Drug: NS 0.9% 500 ml Route: IV; Rate: bolus; Site: right antecubital; kd3 07:16 Follow up: Response: No adverse reaction ap3 07:16 Follow up: IV Status: Completed infusion ap3 06:49 Drug: Rocephin (cefTRIAXone) 1 grams Route: IV; Rate: per protocol; Site: right kd3 antecubital; 07:16 Follow up: IV Status: Completed infusion ap3 06:49 Drug: Cipro (ciprofloxacin) 500 mg Route: PO; kd3 07:16 Follow up: Response: No adverse reaction ap3 Medication: 07:15 VIS not applicable for this client. ap3 Outcome: 07:03 Discharge ordered by . meghana 07:15 Discharged to home ambulatory. ap3 07:15 Condition: good 07:15 Discharge instructions given to patient, Instructed on discharge instructions, follow up and referral plans. medication usage, Demonstrated understanding of instructions, follow-up care, medications, Prescriptions given X 2. 07:36 Patient left the ED. ap3 Signatures: Michaela Spencer RN RN kl Anderson, Corey, MD MD cha Prokisch, Silvia, RN RN ap3 Tahmina Cardoza Kyli, RN RN kd3 Gaviota Nowak RN RN aa9
[2022-03-18 07:24] LABS: Blood Morphology Comment NOTED (NOT SEEN); Platelet Estimate DECR; White Blood Cell Scan OK (OK)
[2022-03-18 07:25] LABS: Polychromasia SLIGHT
[2022-03-18 07:48] VITALS: BP 129/75; TEMP 98.3; O2SAT 100
--- NOTE | 2022-03-19 15:21 | EKG ---
Test Date: 2022-03-18 Test Time: 05:57:37 Terminal Clerk: STEVEN MEASUREMENT RESULTS: Intervals: Rate: 79 MD: 190 QRSD: 106 QT: 408 QTc: 467 [place]: P: 88 MD: 190 QRS: 34 T: 66 INTERPRETIVE STATEMENTS: Normal sinus rhythm Possible Left atrial enlargement Borderline ECG Compared to ECG 01/06/2000 05:28:00 No significant changes Electronically Signed On 03-19-22 15:19:03 CDT by Eloy Cagle
== END 2022-03-18 07:36 | disposition home or self-care (01) ==
LOC: ER 05:39
DX: N39.0 Urinary tract infection, site not specified (principal); K74.60 Unspecified cirrhosis of liver; B19.20 Unspecified viral hepatitis C without hepatic coma
CPT/HCPCS: 36415; 80053; 81003; 85025; 87086; 87088; 93005; 96365; 99283; J7040